=== PATIENT | male | born 1975 | race Caucasian/White ===

== ENCOUNTER 2021-02-18 15:59 | Emergency (ER) | payer BC ==
[~2021-02-18] VITALS: Ht 180.3 cm; Wt 82.1 kg
--- NOTE | 2021-02-18 16:20 | NUR ---
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
--- NOTE | 2021-02-18 16:24 | NUR ---
PT TO RM FROM TRIAGE AT THIS TIME, PT STATES "I TOOK SOMETHING IT WAS SUPPOSED TO BE COCAINE, BUT I DONT KNOW WHAT IT WAS, NOW IM FEELING ALL PARANOID AND I REALLY FUCKED SHIT UP NOW" PT DENIES SI/HI. PT TO CONT PULSE OX, BP, AWAITING ERMD
--- NOTE | 2021-02-18 16:58 | NUR ---
ERP IN TO EVAL PT, PT STATES "IM JUST GOING TO GO" PT WALKED TO REGISTRATION AND SAT DOWN, NOW REQUESTING BLOOD WORK.
[2021-02-18] MEDS ORDERED: LORazepam 1MG TABLET PO ONE (17:30)
[2021-02-18 17:42] LABS: BASOPHILS % (AUTO) 0 % (0-1); EOSINOPHILS % (AUTO) 0 % (1-7); LYMPHOCYTES % (AUTO) 8 % (22-44); MEAN CORPUSCULAR HGB CONC 33.6 g/dL (33.2-36.2); MEAN PLATELET VOLUME 9.3 fL (7.4-10.4); MONOCYTES % (AUTO) 9 % (2-9); NEUTROPHILS % (AUTO) 83 % (42-75); PLATELET COUNT 154 x10^3/uL (130-400); RED BLOOD COUNT 5.12 x10^6/uL (4.38-5.82); RED CELL DISTRIBUTION WIDTH 14.2 % (9.4-14.8)
[2021-02-18 17:46] LABS: ALBUMIN 4.2 g/dL (3.4-5.0); ANION GAP 16 mmol/L (5-15); CHLORIDE 105 mmol/L (98-107); CREATININE 1.95 mg/dL (0.7-1.3)
[2021-02-18 17:49] LABS: TROPONIN I 0.022 ng/mL (0.000-0.045)
[2021-02-18] MEDS ORDERED: LORazepam 1MG TABLET ONE (17:55)
[2021-02-18] MEDS ORDERED: SODIUM CHLORIDE FLUSH 10ML SYR IVF ONE (18:00)
[2021-02-18] MEDS ORDERED: SODIUM CHLORIDE 0.9% 1,000ML IVBOLUS ONE (18:00)
--- NOTE | 2021-02-18 18:03 | NUR ---
PT MEDICATED PER OCT. GIVEN WATER PER REQUEST. NO OTHER NEEDS
--- NOTE | 2021-02-18 18:58 | NUR ---
Report from TEJ Ureña
--- NOTE | 2021-02-18 19:28 | NUR ---
Patient/Caregiver given discharge instructions and they have confirmed that they understand the instructions. Patient ambulatory with steady gait. NAD, all questions answered appropriately, denies additional needs at this time. No personal belongings left in room after discharge.
[2021-02-18 19:32] VITALS: BP 115/87
== END 2021-02-18 19:29 | disposition home or self-care (01) ==
LOC: ED 18:44
DX: F41.1 Generalized anxiety disorder (principal); F15.10 Other stimulant abuse, uncomplicated; R00.0 Tachycardia, unspecified; E86.0 Dehydration
CPT/HCPCS: 36415; 71045; 80048; 82040; 84484; 85025; 93005; 96360; 99285; J7030